=== PATIENT | female | born 1960 | race Caucasian/White ===

== ENCOUNTER 2017-01-20 07:12 | Emergency (ER) | payer OTHER ==
[2017-01-20 07:47] LABS: BASOPHIL 1.5 % (0-2); EOSINOPHIL 1.2 % (0-5); HCT 42.9 % (37.0-47.0); HGB 14.4 g/dl (12.5-16.0); LYMPHOCYTE 37.7 % (15-48); MCH 29.4 pg (25.0-31.0); MCHC 33.6 g/dL (32.0-36.0); MCV 87.6 fL (78.0-100.0); MONOCYTE 10.9 % (0-12); MPV 10.6 fL (6.0-9.5); NEUTROPHIL 48.7 % (41-80); PLT 252 K/uL (150-400); RDW 14.1 % (11.5-14.0)
[2017-01-20 07:58] LABS: INR 1.01 (0.9-1.2); PROTHROMBIN TIME 12.9 SECONDS (11.7-14.0); PTT 27.5 SECONDS (23.2-31.4)
[2017-01-20 08:05] LABS: ALBUMIN 4.5 g/dL (3.5-5.0); BILIRUBIN - TOTAL 0.4 mg/dL (0.1-1.0); CREATININE 0.7 mg/dL (0.5-1.0); GLOBULIN (CALCULATION) 2.8 g/dL (2.2-4.2); MAGNESIUM 2.17 mg/dL (1.40-2.10); TOTAL PROTEIN 7.3 g/dL (6.4-8.3)
[2017-01-20 08:07] LABS: CKMB 1.39 ng/mL (0.97-4.94); MYOGLOBIN 22 ng/mL (26-65); PRO-BNP 50 pg/mL (0-125); TROPONIN T < 0.010 ng/mL
== END 2017-01-20 10:06 | disposition home or self-care (01) ==
LOC: FER 07:12
PROVIDERS: Internal Medicine
DX: R07.89 Other chest pain (principal); E78.5 Hyperlipidemia, unspecified; Z82.49 Family history of ischemic heart disease and other diseases of the circulatory system; Z79.899 Other long term (current) drug therapy
CPT/HCPCS: 36415; 71010; 80053; 82550; 82553; 83735; 83874; 83880; 84484; 85025; 85610; 85730; 93005